=== PATIENT | male | born 1995 | race Caucasian/White ===

== ENCOUNTER 2022-01-26 21:32 | Inpatient (IN) | payer OTHER ==
[~2022-01-26] VITALS: Ht 175.3 cm; Wt 84.0 kg
[2022-01-26 22:17] LABS: BASOPHILS % (AUTO) 0.3 % (0-1); EOSINOPHILS # (AUTO) 0.1 X10'3 (0-0.9); EOSINOPHILS % (AUTO) 0.8 % (0-6); HEMATOCRIT 46.6 % (42.0-52.0); HEMOGLOBIN 15.9 g/dl (14.0-17.9); MEAN CORPUSCULAR HGB CONC 34.2 g/dL (33.0-36.5); MEAN CORPUSCULAR VOLUME 87.5 FL (78-98); MEAN PLATELET VOLUME 8.9 FL (7.4-10.4); MONOCYTES # (AUTO) 0.5 X10'3 (0-0.9); MONOCYTES % (AUTO) 6.8 % (2-12); NEUTROPHILS # (AUTO) 4.6 X10'3 (1.8-7.7); NEUTROPHILS % (AUTO) 64.1 % (42-75); PLATELET COUNT 216 X10'3 (140-440); RED BLOOD COUNT 5.32 X10'6 (4.70-6.10); RED CELL DISTRIBUTION WIDTH 13.6 % (11.5-14.5); WHITE BLOOD COUNT 7.1 X10'3 (4.5-11.0)
[2022-01-26] MEDS ORDERED: LORazepam 1 MG tablet PO ONE (22:30)
[2022-01-26 22:34] LABS: URINE AMPHETAMINE SCREEN NEGATIVE (Neg); URINE BARBITUATE SCREEN NEGATIVE (Neg); URINE BENZODIAZEPINES SCREEN NEGATIVE (Neg); URINE CANNABINOID SCREEN NEGATIVE (Neg); URINE COCAINE SCREEN NEGATIVE (Neg); URINE METHADONE SCREEN NEGATIVE (Neg); URINE OPIATE SCREEN NEGATIVE (Neg); URINE PHENCYCLIDINE SCREEN NEGATIVE (Neg)
[2022-01-26 22:38] LABS: ALANINE AMINOTRANSFERASE 37 U/L (12-78); ALBUMIN 3.9 G/DL (3.4-5.0); ALBUMIN/GLOBULIN RATIO 1.1 (1.1-1.5); ALKALINE PHOSPHATASE 80 IU/L (46-116); ANION GAP 8 (8-16); ASPARTATE AMINO TRANSFERASE 22 U/L (10-37); BILIRUBIN,TOTAL 0.3 MG/DL (0.1-1.0); BLOOD UREA NITROGEN 16 MG/DL (7-18); BUN/CREATININE RATIO 17.6 (5.4-32.0); CALCIUM 8.5 MG/DL (8.5-10.1); CHLORIDE 109 MMOL/L (99-107); CREATININE 0.91 MG/DL (0.60-1.10); ETHANOL 0.068 GM/DL (0.0-0.010); GLUCOSE 99 MG/DL (70-104); POTASSIUM 3.6 MMOL/L (3.5-5.1); SODIUM 141 MMOL/L (135-145); TOTAL CARBON DIOXIDE 24.5 MMOL/L (24-32); TOTAL PROTEIN 7.4 G/DL (6.4-8.2); eGFR > 90 ML/MIN
--- NOTE | 2022-01-26 23:11 | NUR ---
The patient moved to bed 25 from the main er. He was cooperative with the move. He is alert, oriented, calm and pleasant. He denies taking any psychiatric medications. He denies ever being on a 5150 hold. He was made aware that [facility] would speak with him in the am.
--- NOTE | 2022-01-26 23:13 | NUR ---
Packet sent to [facility]
[2022-01-26] MEDS ORDERED: NO HOME MEDS (23:15)
--- NOTE | 2022-01-27 00:03 | NUR ---
The patient appears to be sleeping
--- NOTE | 2022-01-27 01:04 | NUR ---
The patient appears to be sleeping
--- NOTE | 2022-01-27 01:59 | NUR ---
The patient appears to be sleeping
--- NOTE | 2022-01-27 03:08 | NUR ---
The patient appears to be sleeping
--- NOTE | 2022-01-27 04:10 | NUR ---
The patient appears to be sleeping
--- NOTE | 2022-01-27 05:37 | NUR ---
The patient appeared to have slept well during the night
--- NOTE | 2022-01-27 06:26 | NUR ---
Patient up and went to BR. Patient in no apparent distress. Patient is now back in bed. Continue to monitor.
--- NOTE | 2022-01-27 08:50 | NUR ---
[facility] the [facility].
--- NOTE | 2022-01-27 09:47 | NUR ---
Patient requested a cup of coffee. Decaf coffee given. Patient jokingly asked "How do I escape here?" Patient reports he has an appointment later today in the afternoon at the [place]. He states "I just had a bad night last night, I'm not actually suicidal."
--- NOTE | 2022-01-27 09:53 | NUR ---
Lee spoke with the patient's close friend, Zac. Zac's phone number is [phone].
--- NOTE | 2022-01-27 10:03 | NUR ---
Patient is speaking with Zac. Appears calm and comfortable. Addendum: 01/27/22 at 1003 by [email or web address] Speaking on the phone with Zac.
--- NOTE | 2022-01-27 10:34 | NUR ---
Patient is placed on a 5150 hold for danger to self per RICHARD Howard.
--- NOTE | 2022-01-27 12:11 | NUR ---
Patient eating lunch. No distress observed. Continue to monitor.
[2022-01-27] MEDS ORDERED: mag hydrox/Alum hydrox/simeth 30ml oral suspension PO PRN (14:05)
[2022-01-27] MEDS ORDERED: loperamide 2mg capsule PO PRN (14:05)
[2022-01-27] MEDS ORDERED: magnesium hydroxide 30ml (MOM) UD suspension PO PRN (14:05)
[2022-01-27] MEDS ORDERED: acetaminophen 325mg tablet PO PRN ×2 (14:05)
--- NOTE | 2022-01-27 14:05 | NUR ---
Patient sleeping and RN awoke patient to advise him personnel from [facility] will be coming to take him upstairs to their unit. Patient verbalized u nderstanding.
[2022-01-27 14:20] VITALS: BP 119/82
--- NOTE | 2022-01-27 14:20 | NUR ---
Patient ambulatory steady gait with ROD Nesbitt and Security Tyrone. No distress observed at this time.
--- NOTE | 2022-01-27 14:20 | NUR ---
Nursing Admission Note: 5701 Paperwork reads "You pulled a gun on yourself and put it to your head. Law enforcement called to intervene." History of service, several friends and brother committed suicide. Meek is in the [place] area on a job assignment; He resides in [place], [place]. PLEASE BE ADVISED: Per the patient "Please make sure a release for anyone who might call Meek is on filed: "BUT DO NOT GIVE OUT ANY MEDICAL INFORMATION TO ANYONE WHO CALLS TO SPEAK TO HIM."
[2022-01-27 19:36] VITALS: BP 120/80
--- NOTE | 2022-01-28 01:46 | NUR ---
Nursing Progress Note: Legal hold: 5150 Client on involuntary status for DTS Report received from Laz TSRICKLAND with use of SBAR Why are they here: 5150 Paperwork reads "You pulled a gun on yourself and put it to your head. Law enforcement called to intervene." History of service, several friends and brother committed suicide. Meek is in the [place] area on a job assignment; He resides in [place], [place]. Assessment What has happened this shift: Pt sleeping at start of shift. Slept almost entire shift. Awakened once for assessment Pt cooperative but fatigued went back to sleep. S/I, H/I: denies A/VH: denies Sleep: asleep at this time ADL's: Group attendance: NA Were meds taken: None ordered this shift. Any med S/E no Mental Status Exam Appearance: well groomed Eye contact: Poor Behavior cooperative Speech: WNL Mood: Withdrawn Affect: Fatigued Thought process: Linear Thought Content: go back to sleep Cognition: WNL Insight: Poor Judgment: Poor Interventions PRN's used: none Therapeutic interventions: Maintained a safe and supportive environment,, provided clear and simple instructions, attempted to orient to reality, encouraged participation on the unit and performance of ADLs, provided active listening and positive encouragement, and maintained Q 15min safety checks. Restraints/seclusion/emergency medication: N/A Justification of Continued Inpatient Treatment: Pt requires medication adjustments and a safe and supportive environment.
[2022-01-28 07:48] VITALS: BP 123/84
[2022-01-28 08:14] LABS: CHOL/HDL RATIO 4.2 (0.00-4.99); CHOLESTEROL 214 MG/DL (0-200); HDL CHOLESTEROL 51 MG/DL (35-60); LDL CHOLESTEROL 138 MG/DL (50-100); TRIGLYCERIDES 154 MG/DL (20-135)
[2022-01-28 08:30] LABS: HEMOGLOBIN A1C 5.6 % (4.5-6.2)
--- NOTE | 2022-01-28 10:16 | NUR ---
Pt. attended both groups today. The first group was about the different communications styles i.e passive, aggressive and assertive. We discussed what the characteristics of each style was. We then discussed where they saw themselves at now and where they would like to be with their communication style. The second group was an Art Expression group where they colored a heart with what emotions they were currently dealing with. Pt. engaged in the group appropriately. He was alert and oriented X 4. His thought content and thought process were WNL. He as friendly and open to his peers. He shared appropriately about his own communication style explaining how he was in the and that has shaped the way he communicates with others. He explained how in the the communication is very aggressive. He feels that is how he tends to communicate in his career but in his own personal relationships he tries to be more on the assertive side. Pt's demeanor was calm and compliant in both groups. In the second group he engaged well and shared his writing part with the group becoming appropriately emotions as he read it. Petra Landers LCSW
--- NOTE | 2022-01-28 14:45 | NUR ---
Nursing Progress Note: Legal hold: 5150 Client on involuntary status for DTS Report received from Jessie VELASCO with use of SBAR Why are they here: 5150 Paperwork reads "You pulled a gun on yourself and put it to your head. Law enforcement called to intervene." History of service, several friends and brother committed suicide. Meek is in the [place] area on a job assignment; He resides in [place], [place]. Assessment What has happened this shift: Pt was up for breakfast. Pt was cooperative with assessments. Pt was anxious to see the doctor. Pt spent time working on a puzzle and socializing with select peers in the community room. Pt attended group. After seeing Dr Maher, pt stated that he was feeling good. Pt denied depression, anxiety, SI/HI/AH/VH. Pt reported that he spoke to the doctor, got the medication he needed, and they discussed what has to happen to streamline his discharge. Pt c/o a headache after lunch and was given PRN Tylenol 650 mg at 1426. S/I, H/I: Pt denies A/VH: Pt denies Sleep: Pt slept 8 hours last night per noc shift report. ADL's: Independent Group attendance: Yes Were meds taken: No routine meds ordered as of yet. Any med S/E: N/A Mental Status Exam Appearance: Young man with a kendrick dressed in personal clothing. Eye contact: Good Behavior: Pleasant ,cooperative, hung out in the community room working on a puzzle and socializing with peers. Speech: Clear, audible, normal rate & rhythm. Mood:"Good." Affect: Appears mildly anxious. Thought process: Linear Thought Content: He is good, he is happy to have seen a doctor and he is being prescribed the medications he needed. Cognition: A/O X 4 Insight: Fair Judgment: Fair Interventions PRN's used: Tylenol Therapeutic interventions: 1:1 assessment, establishment of rapport, therapeutic conversation, active listening, ensured contract for safety, encouragement to participate in groups and unit activities, provided distraction, positive reinforcement, and maintained Q15 minute safety checks. 15min safety checks. Restraints/seclusion/emergency medication: None Justification of Continued Inpatient Treatment: Pt in need of crisis interruption with medication management and monitoring in a safe and therapeutic environment until stable.
[2022-01-28 19:35] VITALS: BP 127/88
--- NOTE | 2022-01-28 20:20 | NUR ---
Nursing Progress Note: Legal hold: 5150 Client on involuntary status for DTS Report received from Jeanne VELASCO with use of SBAR Why are they here: 5150 Paperwork reads "You pulled a gun on yourself and put it to your head. Law enforcement called to intervene." History of service, several friends and brother committed suicide. Meek is in the [place] area on a job assignment; He resides in [place], [place]. Assessment What has happened this shift: Pt was sitting in his room at change of shift. He is smiling, polite, and pleasant. Pt denies s/i. States he is feeling good right now and states he missed dinner because he was having a good conversation with staff that had also served. Pt requested some coffee and reported no needs at this time. States he is not feeling anxious. Pt went to sleep after having dinner and did not get up for evening snacks. S/I, H/I: Pt denies A/VH: Pt denies Sleep: see sleep hours ADL's: Independent Group attendance: Yes Were meds taken: No routine meds ordered as of yet. Any med S/E: N/A Mental Status Exam Appearance: Young man with a kendrick dressed in personal clothing. Eye contact: Good Behavior: Pleasant ,cooperative Speech: Clear, audible, normal rate & rhythm. Mood:"Good." Affect: congruent with mood Thought process: Linear Thought Content: He is good, he is happy to have seen a doctor and he is being prescribed the medications he needed. Cognition: A/O X 4 Insight: Fair Judgment: Fair Interventions PRN's used:none Therapeutic interventions: 1:1 assessment, establishment of rapport, therapeutic conversation, active listening, ensured contract for safety, encouragement to participate in groups and unit activities, provided distraction, positive reinforcement, and maintained Q15 minute safety checks. 15min safety checks. Restraints/seclusion/emergency medication: None Justification of Continued Inpatient Treatment: Pt in need of crisis interruption with medication management and monitoring in a safe and therapeutic environment until stable.
--- NOTE | 2022-01-29 07:26 | NUR ---
CALL PROPERTY EVIDENCE AT DISCHARGE. CASE #[id number] [phone]
[2022-01-29 07:37] VITALS: BP 119/69
[2022-01-29] MEDS ORDERED: traZODone 50mg tablet PO PRN (07:50)
[2022-01-29] MEDS ORDERED: LORazepam 0.5 MG tablet PO PRN (07:50)
[2022-01-29] MEDS ORDERED: hydrOXYzine 25 MG tablet PO PRN ×2 (07:50→13:50)
[2022-01-29] MEDS: ESCITALOPRAM OXALATE 5 MG TABLET PO SCH (08:30)
--- NOTE | 2022-01-29 15:36 | NUR ---
DCP Presenting Issues: Pt's reporting that he's feeling better denying any desire to commit suicide or any thoughts of suicide. Attending physician requesting dcp support. Interventions: Clinician met w/pt engaged him in dcp activities, pt indicated that he had made f/u appointments w/[facility] already but is wondering if he can have those appointments transferred to the [facility] as he does not plan to stay in [place] upon d/c. Pt signed DEONDRE for clinician to coordinate aftercare plan/services w/[facility]. Clinician also provided pt w/LE contact re his gun. Clinician had t/c with [facility] dcp @ [phone], per t/c pt will have a telephone intake w/GIFTY Singleton on Saturday 02/03 @ 3PM and a telephone medication appointment w/Dr. Talavera on Monday 02/05. [place] SHYANN will assist w/transferring pt's services to the [facility] in [place]. Plan: Pt to d/c tomorrow, family will chart picker. Valery Pace LCSW Addendum: 01/29/22 at 1543 by Valery Pace SS Amended: Links added.
--- NOTE | 2022-01-29 16:51 | NUR ---
Nursing Progress Note: Meek Legal hold: 5150 Client on involuntary status for DTS Report received from ROD Roman with use of SBAR Why are they here: 5150 Paperwork reads "You pulled a gun on yourself and put it to your head. Law enforcement called to intervene." History of service, several friends and brother committed suicide. Meek is in the [place] area on a job assignment; He resides in [place], [place]. Assessment What has happened this shift: Patient received sleeping in his room at change of shift. Patient awoken to join for breakfast in the community room with peers. Patient refused to leave his room despite encouragement. He was provided with a breakfast tray to his room. Patient was receptive to scheduled medication and 1:1 assessment. Patient endorsing to this bid writer that he doesnt need to be here and wants to discharge as soon as possible. Patient stating that he has family and a support system back home. When asked questions of SI/HI, patient endorsed that he never felt suicidal and [facility] He denies AH or VH. Does not appear to be responding to internal stimuli. He was isolative to his room the majority of the morning. Patient noted participating in group therapy later, engaging appropriately with peers. Patient endorsed hopes of being discharged tomorrow to this bid writer. Patient also endorsing how much money he makes to this bid writer, stating that he doesnt need to ask for the remote to the television. He joined with peers in the community room for lunch. He is noted to be polite and pleasant upon interaction, noted making jokes and telling stories about being in the [employer]. He was observed putting pieces of a puzzle together with a peer later in the day. He was active on the unit the majority of the day. Patient participated in the community room with peers for lunch, snack time, and dinner. S/I, H/I: Pt denies A/VH: Pt denies. Does not appear to be responding to internal stimuli. Sleep: Pt slept 9.25 hours last night per NOC shift report. No naps noted today. ADL's: Independent Group attendance: Yes Were meds taken: Yes Any med S/E: None noted or reported Mental Status Exam Appearance: Clean and neat young man with a kendrick dressed in personal clothing. Eye contact: Good Behavior: Pleasant, cooperative, social with peers. Speech: Clear, audible, normal rate & rhythm. Mood: "Good" Affect: Appears mildly anxious. Thought process: Linear Thought Content: Perseveration on discharge. Doesnt need to be here and wants to discharge as soon as possible. Cognition: A&O X 4 Insight: Fair Judgment: Fair Interventions PRN's used: N/A Therapeutic interventions: 1:1 assessment, establishment of rapport, therapeutic conversation, active listening, ensured contract for safety, encouragement to participate in groups and unit activities, provided distraction, positive reinforcement, and maintained Q15 minute safety checks. Restraints/seclusion/emergency medication: None Justification of Continued Inpatient Treatment: Pt in need of crisis interruption with medication management and monitoring in a safe and therapeutic environment until stable.
[2022-01-29 19:10] VITALS: BP 104/67
--- NOTE | 2022-01-29 21:20 | NUR ---
Nursing Progress Note: Meek Legal hold: 5150 Client on involuntary status for DTS Report received from ROD Angel with use of SBAR Why are they here: 5150 Paperwork reads "You pulled a gun on yourself and put it to your head. Law enforcement called to intervene." History of service, several friends and brother committed suicide. Meek is in the [place] area on a job assignment; He resides in [place], [place]. Assessment What has happened this shift: Pt was in group room watching tv with peers at change of shift. Pt states he is feeling ok and "trying to get through it tonight." as he is leaving tomorrow. Pt denies s/i. Pt is social with peers, had a snack and went to bed. S/I, H/I: Pt denies A/VH: Pt denies. Does not appear to be responding to internal stimuli. Sleep: see sleep hours ADL's: Independent Group attendance: no evening groups Were meds taken: Yes Any med S/E: None noted or reported Mental Status Exam Appearance: Clean and neat young man with a kendrick dressed in personal clothing. Eye contact: Good Behavior: Pleasant, cooperative, social with peers. Speech: Clear, audible, normal rate & rhythm. Mood: "Good" Affect: Appears mildly anxious. Thought process: Linear Thought Content: Perseveration on discharge. Doesnt need to be here and wants to discharge as soon as possible. Cognition: A&O X 4 Insight: Fair Judgment: Fair Interventions PRN's used: N/A Therapeutic interventions: 1:1 assessment, establishment of rapport, therapeutic conversation, active listening, ensured contract for safety, encouragement to participate in groups and unit activities, provided distraction, positive reinforcement, and maintained Q15 minute safety checks. Restraints/seclusion/emergency medication: None Justification of Continued Inpatient Treatment: Pt in need of crisis interruption with medication management and monitoring in a safe and therapeutic environment until stable.
[2022-01-30 07:56] VITALS: BP 116/83
[2022-01-30] MEDS: ESCITALOPRAM OXALATE 5 MG TABLET PO SCH (08:06)
--- NOTE | 2022-01-30 10:03 | NUR ---
Initial: Pt admit on 5149 for panic disorder, SI, and PTSD. Currently on a regular diet and eating well with mostly 75-100% PO intake meeting estimated nutrient needs. [facility] 01/29. No nutrition diagnosis at this time. Will continue to follow. Recommendations: 1) Continue regular diet 2) Bowel care PRN 3) Weekly scaled weights Addendum: 01/30/22 at [address] Amended: Links added.
[2022-01-30] MEDS ORDERED: ESCI5TAB PO (10:59)
[2022-01-30] MEDS ORDERED: HYDR-3686 PO (10:59)
--- NOTE | 2022-01-30 12:03 | NUR ---
Patient discharged and escorted from unit at approximately 1159. Patient is A&O x4, calm and cooperative with no s/s of distress. Discharge instructions reviewed with opportunity for all questions to be answered. Patients belongings inventoried and returned to him. Rx reviewed with and given to patient. Paperwork from [place] [employer] given to patient. He was ambulatory from the unit to the front of the hospital with a steady gait. Patient picked up by his parents to return home. He left the hospital without incident.
== END 2022-01-30 12:05 | disposition home or self-care (01) | DRG 880 ==
LOC: ER 21:32 → ED HOLD 01-27 11:50 → ADULT MH 01-27 14:12
PROVIDERS: ADMIT Psychiatry & Neurology Psychiatry; ATTEND Psychiatry & Neurology Psychiatry
DX: F41.0 Panic disorder [episodic paroxysmal anxiety] (principal); R45.851 Suicidal ideations; F32.A Depression, unspecified; Z20.822 Contact with and (suspected) exposure to COVID-19; E78.5 Hyperlipidemia, unspecified; R22.2 Localized swelling, mass and lump, trunk; F41.9 Anxiety disorder, unspecified; F10.20 Alcohol dependence, uncomplicated; F43.10 Post-traumatic stress disorder, unspecified; Z80.0 Family history of malignant neoplasm of digestive organs; Z87.891 Personal history of nicotine dependence
CPT/HCPCS: 36415; 80053; 80061; 80305; 80320; 83036; 84443; 85025; 87081; 87635; 99285; C9803